=== PATIENT | male | born 1940 | race Caucasian/White ===

== ENCOUNTER → 2016-08-11 | Day surgery (SDC) | payer OTHER ==
[2016-08-03 09:42] VITALS: Ht 177.8 cm; Wt 99.5 kg
[~2016-08-11] VITALS: Ht 177.8 cm; Wt 99.5 kg
[~2016-08-11] MED LIST: ACET-1256 PO; ASPI-461 PO; COEN75CA PO; FENO134C2 PO; LIDOCAINE HCL 2% 2 ML VIAL (20MG/ML) ONE; LISI20TA3 PO; LORA10TA44 PO; LOVA10TA3 PO; OMEP40CA PO; ONDANSETRON INJ 2 MG/ML 2 ML VIAL ONE; PROPOFOL IV EMULSION 10 MG/ML 20 ML VIAL IV ONE
--- NOTE | 2016-08-11 14:39 | Endo History and Physical ---
History & Physical Date of Service: Aug 11, 2016. Chief Complaint: dysphagia Referring Physician: Dr. Augusto Gross History of Present Illness 75 yo CM who presents for EGD secondary to dysphagia. Past Surgical History Hx Cardiac Surgery: No Hx Internal Defibrillator: No Hx Pacemaker: No Hx Abdominal Surgery: Yes (HERNIA REPAIR) Hx of Implantable Prosthesis: No Hx Post-Op Nausea and Vomiting: No Hx Cancer Surgery: No Hx Thoracic Surgery: No Hx Orthopedic: No Hx Urinary Tract Surgery: No Family History None Social History Smoking Status: Former Smoker Hx Substance Use: No Hx Alcohol Use: No Allergies Coded Allergies: No Known Allergies (Verified , 08/11/16) Current Medications Reported Home Medications Medications Dose Route/Sig Max Daily Dose Days Date Category Prilosec (Omeprazole) 40 Mg Capcr 40 Mg PO QAM 08/03/16 Reported Mevacor (Lovastatin) 10 Mg Tab 10 Mg PO HS 08/03/16 Reported Tricor (Fenofibrate) 134 Mg Cap 134 Mg PO QAM 08/03/16 Reported Prinivil (Lisinopril) 20 Mg Tab 20 Mg PO QAM 08/03/16 Reported Tylenol (Acetaminophen) 500 Mg Tab 1,000 Mg PO BID 08/03/16 Reported Allergy (Loratadine) 10 Mg Tab 1 Tab PO QAM 08/03/16 Reported Co Q-10 (Coenzyme Q10 (Ubidecarenone)) 75 Mg Cap 1 Cap PO QAM 08/03/16 Reported Aspirin 81 Mg Tab 1 Tab PO QAM 08/03/16 Reported Vital Signs Weight (Kilograms): 99.55 Height (Feet): 5 Height (Inches): 10 Date Time Temp Pulse Resp B/P Pulse Ox O2 Delivery O2 Flow Rate FiO2 08/11/16 13:55 36.5 60 20 141/78 96 Room Air Physical Exam General Appearance: WD/WN, no apparent distress Respiratory/Chest: Auscultation: breath sounds normal Cardiovascular: Heart Auscultation: RRR Abdomen: Bowel Sounds: normal Inspection & Palpation: soft, non-distended, no tenderness, guarding & rebound Assessment and Plan Assessment: 75 yo CM who presents for EGD secondary to dysphagia. Plan: Proceed with EGD.
--- NOTE | 2016-08-11 14:55 | GI REPORT ---
Procedure Date: 08/11/2016 2:26 PM Procedure: Upper GI endoscopy Indications: Dysphagia Medicines: Monitored Anesthesia Care Complications: No immediate complications. Estimated Blood Loss: Estimated blood loss: none. Procedure: Pre-Anesthesia Assessment: - Prior to the procedure, a History and Physical was performed, and patient medications and allergies were reviewed. The patient's tolerance of previous anesthesia was also reviewed. The risks and benefits of the procedure and the sedation options and risks were discussed with the patient. All questions were answered, and informed consent was obtained. Prior Anticoagulants: The patient has taken aspirin, last dose was 1 day prior to procedure. ASA Grade Assessment: III - A patient with severe systemic disease. After reviewing the risks and benefits, the patient was deemed in satisfactory condition to undergo the procedure. After obtaining informed consent, the endoscope was passed under direct vision. Throughout the procedure, the patient's blood pressure, pulse, and oxygen saturations were monitored continuously. The Scope was introduced through the mouth, and advanced to the second part of duodenum. The upper GI endoscopy was accomplished without difficulty. The patient tolerated the procedure well. Findings: The esophagus was normal. Localized mild inflammation characterized by erythema was found in the gastric antrum. Biopsies were taken with a cold forceps for histology. The examined duodenum was normal. Impression: - Normal esophagus. - Gastritis. Biopsied. - Normal examined duodenum. Recommendation: - Resume previous diet. - Continue present medications. - Await pathology results. - Return to GI office as previously scheduled. Casey Spencer, 08/11/2016 2:53:35 PM This report has been signed electronically. Note Initiated On: 08/11/2016 2:26 PM
--- NOTE | 2016-08-11 14:59 | Discharge Instructions ---
Endoscopy Patient Instructions Date / Procedure(s) Performed Aug 11, 2016. EGD Allergy Information Coded Allergies: No Known Allergies (Verified , 08/11/16) Discharge Date / Findings Aug 11, 2016. Gastritis s/p biopsies Medication Instructions Stopped Medication(s): stopped ASA yesterday OK to resume all medications today as prescribed. Reported Home Medications Medications Dose Route/Sig Max Daily Dose Days Date Category Prilosec (Omeprazole) 40 Mg Capcr 40 Mg PO QAM 08/03/16 Reported Mevacor (Lovastatin) 10 Mg Tab 10 Mg PO HS 08/03/16 Reported Tricor (Fenofibrate) 134 Mg Cap 134 Mg PO QAM 08/03/16 Reported Prinivil (Lisinopril) 20 Mg Tab 20 Mg PO QAM 08/03/16 Reported Tylenol (Acetaminophen) 500 Mg Tab 1,000 Mg PO BID 08/03/16 Reported Allergy (Loratadine) 10 Mg Tab 1 Tab PO QAM 08/03/16 Reported Co Q-10 (Coenzyme Q10 (Ubidecarenone)) 75 Mg Cap 1 Cap PO QAM 08/03/16 Reported Aspirin 81 Mg Tab 1 Tab PO QAM 08/03/16 Reported Provider Instructions Activity Restrictions - No exercising or heavy lifting for 24 hours. - Do not drink alcohol the day of the procedure. - Do not drive a car or operate machinery until the day after the procedure. - Do not make any important decisions or sign important papers in 24 hours after the procedure. Following Day: - Return to full activity which may include returning to work/school. Diet Start your diet with liquids and light foods (jello, soup, juice, toast). Then eat your usual diet if not nauseated. Treatment For Common After Affects For mild abdominal pain, bloating, or excessive gas: - Rest - Eat lightly - Lie on right side Follow-Up Information Follow-up with Dr. Augusto Gross as scheduled Anesthesia Information What You Should Know You have had a procedure that required some medicine to reduce anxiety and discomfort. This treatment is called moderate sedation. After receiving the treatment, you may be sleepy, but you will be able to breathe on your own. The effects of the treatment may last for several hours. Follow these instructions along with Activity/Diet recommendations noted above: * Do NOT do anything where dizziness or clumsiness would be dangerous. * Rest quietly at home today, then you can be up and about tomorrow. * Have a responsible person stay with you the rest of today. * You may have had an I.V. today. If so, you may take the dressing off later today. Recommendations Call your doctor if: * Trouble breathing * Continuous vomiting for more than 24 hours * Temperature above 101 degrees * Severe abdominal pain or bloating * Pain not relieved by pain medicine ordered * There is increased drainage or redness from any incision * A large amount of rectal bleeding greater than 2-3 tablespoons. (If you had a polyp/s removed or have hemorrhoids, a small amount of blood - from the rectum is to be expected.) * You have any unanswered questions or concerns. IN THE EVENT OF A SERIOUS EMERGENCY, GO TO THE NEAREST EMERGENCY ROOM Your discharge instructions were prepared by provider Casey Spencer. Patient Instructions Signature Page Jadon Stanford Patient (or Guardian) Signature/Date: I have read and understand the instructions given to me by my caregivers. Caregiver/RN/Doctor Signature/Date: The above-named patient and/or guardian has received patient instructions on this date. + Original Patient Signature Page (only) stays with chart. Please make copy for patient.
[2016-08-11 15:32] VITALS: BP 145/72; PULSE 60; O2SAT 97
--- NOTE | 2016-08-11 16:22 | Anesthesiology Progress Note ---
Anesthesia Post Op Note Date & Time Aug 11, 2016 at 16:22 Vital Signs Pain Intensity: 0 Vital Signs Past 12 Hours Date Time Temp Pulse Resp B/P Pulse Ox O2 Delivery O2 Flow Rate FiO2 08/11/16 15:32 60 20 145/72 97 Room Air 08/11/16 15:11 63 20 154/70 95 Room Air 08/11/16 14:55 62 20 134/61 97 Room Air 08/11/16 13:55 36.5 60 20 141/78 96 Room Air Notes Mental Status: alert / awake / arousable, participated in evaluation Pt Amnestic to Procedure: Yes Nausea / Vomiting: adequately controlled Pain: adequately controlled Airway Patency, RR, SpO2: stable & adequate BP & HR: stable & adequate Hydration State: stable & adequate Anesthetic Complications: no major complications apparent
== END | disposition home or self-care (01) ==
LOC: C.GI 13:37
PROVIDERS: ATTEND Internal Medicine
DX: K29.50 Unspecified chronic gastritis without bleeding (principal); R13.10 Dysphagia, unspecified; Z87.891 Personal history of nicotine dependence

== ENCOUNTER → 2017-01-17 | Outpatient (CLI) | payer OTHER ==
[~2017-01-17] MED LIST changes: -LIDOCAINE HCL 2% 2 ML VIAL (20MG/ML) ONE; -ONDANSETRON INJ 2 MG/ML 2 ML VIAL ONE; -PROPOFOL IV EMULSION 10 MG/ML 20 ML VIAL IV ONE
[2017-01-17 14:31] LABS: ALT/SGPT 26 U/L (12-78); AST/SGOT 14 U/L (15-37); BLOOD UREA NITROGEN 24 mg/dl (7-18); BUN/CREATININE RATIO 18.7 (10-20); CARBON DIOXIDE 25 mmol/L (21-32); CHLORIDE 108 mmol/L (98-107); CHOLESTEROL 120 mg/dl (0-200); GLUCOSE 95 mg/dl (70-99); POTASSIUM 4.3 mmol/L (3.5-5.1); SODIUM 141 mmol/L (136-145)
[2017-01-17 14:34] LABS: CALCIUM 8.5 mg/dl (8.5-10.1); CHOLESTEROL/HDL RATIO 3.9; HDL CHOLESTEROL 31 mg/dl; LDL CHOLESTEROL CALCULATED 68 mg/dl; TRIGLYCERIDES 105 mg/dl (0-150); VERY LOW DENSITY LIPOPROT CALC 21 mg/dl
== END | disposition home or self-care (01) ==
LOC: C.LABMFLN 10:50
PROVIDERS: ATTEND Family Medicine
DX: I10 Essential (primary) hypertension (principal); E78.5 Hyperlipidemia, unspecified